=== PATIENT | female | born 1985 | race Caucasian/White ===

== ENCOUNTER 2023-02-20 14:30 | Outpatient (RCR) | payer OTHER, SELFPAY | END 2023-04-01 07:33 | disposition home or self-care (01) | LOC: PT 14:30 | PROVIDERS: Visit Provider Nurse Practitioner Family | DX: M54.17 Radiculopathy, lumbosacral region (principal) | CPT/HCPCS: 97010; 97012; 97014; 97110; 97140; 97163; G0283 ==